=== PATIENT | male | born 1935 | race Caucasian/White ===

== ENCOUNTER 2017-08-14 14:20 | Emergency (ER) | payer MEDICARE, MEDICAID ==
[2015-05-21 12:04] VITALS: Wt 95.3 kg
--- NOTE | 2017-08-14 14:25 | ER Report ---
History and Physical Time Seen By MD: 14:24 HPI/ROS CHIEF COMPLAINT: Weeping wounds and edema to the lower extremities HISTORY OF PRESENT ILLNESS: This is a 81-year-old male who presents to the ED via EMS for lower leg edema, weeping wounds and low oxygen saturation. Patient states that he's had some increased edema and drainage from his right lower leg today. Patient states Nery Colon has treated him for a cellulitic infection to the lower extremity 2 weeks, that infection has resolved. Patient denies pain in the calf, there is no erythema or cellulitic looking infection. Patient does appear to have PAD the lower extremities. There are 2 wounds that I can see that are oozing serous fluid. Patient denies chest pain, shortness of breath, nausea, vomiting, aches, chills, diarrhea or any other complaints. REVIEW OF SYSTEMS: Constitutional: No fever, no chills. Eyes: No discharge. ENT: No sore throat. Cardiovascular: No chest pain, no palpitations. Respiratory: No cough, no shortness of breath. Gastrointestinal: No abdominal pain, no vomiting. Genitourinary: No hematuria. Musculoskeletal: No back pain. Skin: As above. Neurological: No headache. Allergies: Coded Allergies: No Known Drug Allergies (Unverified , 08/14/17) Home Meds Reported Medications Triamcinolone Acet 0.5% (TRIAMCINOLONE ACETONIDE 0.5%) 15 Gm Cr, 15 GM TP BID, TUBE 05/17/16 Menthol/Camphor (SARNA ANTI-ITCH LOTION) 222 Ml Lotion, 222 ML TP BID 05/17/16 Methylphenidate Hcl (RITALIN) 10 Mg Tab, 10 MG PO BID, TAB 05/17/16 Calcium Carbonate/Vitamin D3 (CALCIUM 500 + VIT D 200 TABLET) 1 Each Tablet, 1 EACH PO QDAY for 30 Days 06/03/15 Clobetasol Propionate/Emoll (TEMOVATE EMOLLIENT 0.05% CRM) 60 Gm Cream..g., 0 TP BID Y for DISCOMFORT for 30 Days 06/03/15 Docusate Sodium (DOCUSATE SODIUM) 100 Mg Capsule, 100 MG PO BID, #60 CAPSULE 01/18/15 Duloxetine Hcl (CYMBALTA) 60 Mg Capsule.dr, 120 MG PO QAM, #60 CAP 01/18/15 Rivaroxaban (XARELTO 10 MG TAB (OR EQUIV)) 10 Mg Tablet, 20 MG PO QDAY, #30 01/05/15 Diltiazem Hcl (CARDIZEM CD) 240 Mg Cap.er.24h, 120 MG PO QDAY, #30 01/05/15 Multivitamin (DAILY MULTIPLE VITAMIN) 1 Each Tablet, 1 EACH PO DAILY 11/07/14 Mirtazapine (REMERON) 15 Mg Tablet, 30 MG PO QHS, #30 11/07/14 Tamsulosin Hcl (TAMSULOSIN HCL) 0.4 Mg Cap.er.24h, 0.4 MG PO QDAY, #30 11/03/14 Past Medical/Surgical History Patient has a past medical and surgical history of PAD, on Xarelto, irregular heartbeat, A. fib, hypertension, questionable reactive airway disease, enlarged prostate, degenerative joint disease, arthritis, wears glasses, hard of hearing , eczema, depression, anxiety, cardiac ablation, knee scope, bilateral hip replacement, Lasik surgery, tonsillectomy. Reviewed Nurses Notes: Yes Hx Smoking: No Smoking Status: Former Smoker Exposure to Second Hand Smoke?: No Hx Substance Use Disorder: Yes (30 years ago) Hx Alcohol Use: No Constitutional Vital Sign - Last 24 Hours 08/14/17 08/14/17 08/14/17 08/14/17 14:20 14:23 14:25 14:30 Temp 97.7 Pulse 65 63 72 Resp 16 B/P (MAP) 113/92 Pulse Ox 85 93 93 94 O2 Delivery Room Air 08/14/17 08/14/17 08/14/17 08/14/17 14:35 14:40 14:45 15:37 Pulse 65 59 B/P (MAP) 146/79 (101) Pulse Ox 96 96 92 92 O2 Delivery Room Air 08/14/17 15:43 Pulse 65 B/P (MAP) 146/79 (101) Pulse Ox 92 O2 Delivery Room Air Physical Exam General Appearance: The patient is alert, has no immediate need for airway protection and no signs of toxicity. Eyes: Pupils equal and round no pallor or injection. ENT, Mouth: Mucous membranes are moist. Respiratory: There are no retractions, lungs are clear to auscultation. Cardiovascular: Regular rate and rhythm, systolic murmur, no clicks or rubs. Gastrointestinal: Abdomen is soft and non tender, no masses, bowel sounds normal. Neurological: Alert and oriented 4. Moving all extremities. Following all commands. No focal deficits. Skin: Nonpitting edema to the lower extremities bilaterally, with serous fluid leaking from the right lower extremity. No erythema, no pain or cellulitic looking infection. Musculoskeletal: Neck is supple non tender. Extremities are nontender, nonswollen and have full range of motion. DIFFERENTIAL DIAGNOSIS: After history and physical exam differential diagnosis was considered for DVT, PAD, cellulitis and vasculitis. Medical Decision Making Data Points Result Diagram: 08/14/17 1448 08/14/17 1448 Laboratory Hematology Test 08/14/17 14:48 Red Blood Count 5.15 M/uL (4.00-5.60) Mean Corpuscular Volume 87.9 fL (80.0-96.0) Mean Corpuscular Hemoglobin 30.1 pg (26.0-33.0) Mean Corpuscular Hemoglobin Concent 34.2 g/dL (32.0-36.0) Red Cell Distribution Width 14.9 % (11.5-14.5) Mean Platelet Volume 8.5 fL (7.2-11.1) Neutrophils (%) (Auto) 64.1 % (39.4-72.5) Lymphocytes (%) (Auto) 23.1 % (17.6-49.6) Monocytes (%) (Auto) 9.3 % (4.1-12.4) Eosinophils (%) (Auto) 2.9 % (0.4-6.7) Basophils (%) (Auto) 0.6 % (0.3-1.4) Nucleated RBC Relative Count (auto) 0.1 /100WBC Neutrophils # (Auto) 3.4 K/uL (2.0-7.4) Lymphocytes # (Auto) 1.2 K/uL (1.3-3.6) Monocytes # (Auto) 0.5 K/uL (0.3-1.0) Eosinophils # (Auto) 0.2 K/uL (0.0-0.5) Basophils # (Auto) 0.0 K/uL (0.0-0.1) Nucleated RBC Absolute Count (auto) 0.00 K/uL Sodium Level 138 mmol/L (137-145) Potassium Level 4.0 mmol/L (3.5-5.0) Chloride Level 102 mmol/L (98-107) Carbon Dioxide Level 26 mmol/L (22-30) Blood Urea Nitrogen 18 mg/dl (9-21) Creatinine 0.90 mg/dl (0.66-1.25) Glomerular Filtration Rate Calc > 60.0 Random Glucose 95 mg/dl (75-110) Calcium Level 9.1 mg/dl (8.4-10.2) Total Bilirubin 0.7 mg/dl (0.2-1.3) Aspartate Amino Transf (AST/SGOT) 19 U/L (0-35) Alanine Aminotransferase (ALT/SGPT) 32 U/L (0-56) Alkaline Phosphatase 74 U/L (0-126) Total Protein 7.5 gm/dl (6.3-8.2) Albumin 4.1 g/dl (3.5-5.0) Chemistry Test 08/14/17 14:48 White Blood Count 5.4 k/uL (4.5-11.0) Red Blood Count 5.15 M/uL (4.00-5.60) Hemoglobin 15.5 g/dL (14.0-18.0) Hematocrit 45.3 % (42.0-52.0) Mean Corpuscular Volume 87.9 fL (80.0-96.0) Mean Corpuscular Hemoglobin 30.1 pg (26.0-33.0) Mean Corpuscular Hemoglobin Concent 34.2 g/dL (32.0-36.0) Red Cell Distribution Width 14.9 % (11.5-14.5) Platelet Count 171 K/uL (150-450) Mean Platelet Volume 8.5 fL (7.2-11.1) Neutrophils (%) (Auto) 64.1 % (39.4-72.5) Lymphocytes (%) (Auto) 23.1 % (17.6-49.6) Monocytes (%) (Auto) 9.3 % (4.1-12.4) Eosinophils (%) (Auto) 2.9 % (0.4-6.7) Basophils (%) (Auto) 0.6 % (0.3-1.4) Nucleated RBC Relative Count (auto) 0.1 /100WBC Neutrophils # (Auto) 3.4 K/uL (2.0-7.4) Lymphocytes # (Auto) 1.2 K/uL (1.3-3.6) Monocytes # (Auto) 0.5 K/uL (0.3-1.0) Eosinophils # (Auto) 0.2 K/uL (0.0-0.5) Basophils # (Auto) 0.0 K/uL (0.0-0.1) Nucleated RBC Absolute Count (auto) 0.00 K/uL Glomerular Filtration Rate Calc > 60.0 Calcium Level 9.1 mg/dl (8.4-10.2) Total Bilirubin 0.7 mg/dl (0.2-1.3) Aspartate Amino Transf (AST/SGOT) 19 U/L (0-35) Alanine Aminotransferase (ALT/SGPT) 32 U/L (0-56) Alkaline Phosphatase 74 U/L (0-126) Total Protein 7.5 gm/dl (6.3-8.2) Albumin 4.1 g/dl (3.5-5.0) ED Course/Re-evaluation ED Course The patient was admitted to room. A history and physical were obtained. Differential diagnoses were considered. After history and physical were obtained did elect to do the CBC and CMP. Lab studies are unremarkable. Patient was concerned with the weeping of the right lower extremity. After an evaluation did not see any sort of infectious process developing in the right lower extremity or the left lower extremity. Patient was treated by his PCP for cellulitis of the right lower extremity 2 weeks. Patient's states this has improved. Patient's states the swelling has began to ciro however today he became concerned when he had some serous fluid draining from a couple of sites. When I did go back into the room to review the laboratory studies with patient he said that he is "ready to go home". I did tell the patient there were no concerning lab studies. Patient states he is happy and ready to go. The patient' s right lower extremity was wrapped with an Jaguar wrap and absorbent pads to help with the oozing. The patient was instructed to follow-up with his primary care provider in 2-5 days for reevaluation of the edema and the oozing. Patient was also encouraged to return the ED for any other concerns or worsening symptoms. Patient was in agreement with this plan of care and discharged home. Decision to Disposition Date: Aug 14, 2017 Decision to Disposition Time: 15:39 Depart Departure Latest Vital Signs Vital Signs Date Time Temp Pulse Resp B/P (MAP) Pulse Ox O2 Delivery O2 Flow Rate FiO2 08/14/17 15:43 65 146/79 (101) 92 Room Air 08/14/17 14:23 97.7 16 Impression: Primary Impression: Bilateral lower extremity edema Condition: Improved Disposition: HOME OR SELF-CARE Referrals: NERY COLON (PCP) Patient Instructions: Leg Edema (ED) Additional Instructions: Drink plenty of fluids. Get plenty of rest. Monitor the clear drainage and lower legs for signs of infection. May use the jaguar wrap to the lower extremity if needed to the lower extremity for comfort and to help reduce the edema. Please follow up with your PCP within the next 3-5 days to ensure the legs and drainage are improving. May return to the ED for any other concerns or worsening symptoms. ASHLEY PENAP-BC Aug 14, 2017 14:25
[2017-08-14 15:00] LABS: PLATELET COUNT, AUTOMATED 171 K/uL (150-450)
[2017-08-14 15:43] VITALS: BP 146/79
== END 2017-08-14 15:40 | disposition home or self-care (01) ==
LOC: ER 14:25
DX: R60.0 Localized edema (principal)
CPT/HCPCS: 36415; 82040; 82247; 82310; 82374; 82435; 82565; 82947; 84075; 84132; 84155; 84295; 84450; 84460; 84520; 85025; 99283

== ENCOUNTER → 2017-08-14 | Outpatient (CLI) | payer MEDICARE, MEDICAID ==
[2015-05-21 12:04] VITALS: BMI 25.5
[~2017-08-14] MED LIST: ACET-1966 PO; ARIP10TA5; ARIP10TA5 PO; CALC-941 PO; CELE-1 PO; CLOB60CR TP; DILT-100 PO; DILT-88; DILT240C PO; DOCU-202 PO; DOCU-416 PO; DULO30CA35 PO; DULO60CA56 PO; DULO60CA7 PO; ENO30I SC; ESCI20TA38 PO; HCTZ25 PO; HYDR-317 PO; HYDR-385 PO; LOR5/325 PO; MEGE20TA7 PO; METH18ERPT PO; METH20CP PO; METH20TA37 PO; METH5TAB85 PO; METHY10 PO; MIRT-1 PO; MULT-865 PO; OMEG500C7 PO; PER PO; PRED-1 PO; RAMI10CA52; RAMI5CAP72 PO; RIV10 PO; RIVA20TA PO; SENN-287 PO; TAMS0.4C70 PO; TRAM-420 PO; TRAM-627 PO; TRI05T TP; WAR5 PO; WARF5VIA3 PO; [UNRECOGNIZED DRUG - CODE] TP; megastrol PO
== END ==
LOC: AMB 14:05
PROVIDERS: ATTEND Nurse Practitioner
DX: L03.115 Cellulitis of right lower limb (principal); R60.0 Localized edema; R09.02 Hypoxemia
CPT/HCPCS: A0425; A0429

== ENCOUNTER → 2017-08-20 | Outpatient (REF) | payer MEDICARE, MEDICAID ==
[2015-05-21 12:04] VITALS: BMI 25.5
[2017-08-20 11:11] LABS: PLATELET COUNT, AUTOMATED 177 K/uL (150-450)
[2017-08-20 11:17] LABS: LDL CHOLESTEROL 93 mg/dl
== END ==
LOC: ZZSENDIN 10:46
PROVIDERS: ATTEND Nurse Practitioner Family
DX: D64.9 Anemia, unspecified (principal); J45.909 Unspecified asthma, uncomplicated; I48.91 Unspecified atrial fibrillation; I10 Essential (primary) hypertension; I25.10 Atherosclerotic heart disease of native coronary artery without angina pectoris; F34.1 Dysthymic disorder; R60.9 Edema, unspecified; E34.9 Endocrine disorder, unspecified; E78.00 Pure hypercholesterolemia, unspecified; E23.6 Other disorders of pituitary gland; R09.02 Hypoxemia; M62.81 Muscle weakness (generalized); R53.83 Other fatigue; D51.0 Vitamin B12 deficiency anemia due to intrinsic factor deficiency; E07.9 Disorder of thyroid, unspecified; E55.9 Vitamin D deficiency, unspecified
CPT/HCPCS: 82040; 82247; 82306; 82310; 82374; 82435; 82465; 82565; 82607; 82947; 83718; 84075; 84132; 84155; 84295; 84443; 84450; 84460; 84478; 84520; 85025

== ENCOUNTER → 2018-02-22 | Outpatient (REF) | payer MEDICARE, MEDICAID ==
[2015-05-21 12:04] VITALS: BMI 25.5
[~2018-02-22] MED LIST changes: +AMOX500T10 PO; +CHOL200025 PO; +DILT120T13 PO; +DULO30CA6 PO; +FURO-47 PO; +GABA-547 PO; +OMEP-125 PO; +OXYGENHOME INH; +POTA-23 PO; -RAMI10CA52; +RAMI10CA9; +VITA1CAP46 PO
== END ==
LOC: ZZSENDIN 13:13
PROVIDERS: ATTEND Family Medicine
DX: R41.0 Disorientation, unspecified (principal)
CPT/HCPCS: 81001

== ENCOUNTER → 2018-03-18 | Outpatient (CLI) | payer MEDICARE, MEDICAID ==
[2015-05-21 12:04] VITALS: BMI 25.5
== END ==
LOC: LAB 10:53
PROVIDERS: ATTEND Family Medicine
DX: Z02.9 Encounter for administrative examinations, unspecified (principal)

== ENCOUNTER → 2018-04-03 | Outpatient (CLI) | payer MEDICARE, MEDICAID ==
[2015-05-21 12:04] VITALS: BMI 25.5
== END ==
LOC: RESP 20:56
PROVIDERS: ATTEND Family Medicine
DX: G47.33 Obstructive sleep apnea (adult) (pediatric) (principal); G47.61 Periodic limb movement disorder; G47.36 Sleep related hypoventilation in conditions classified elsewhere

== ENCOUNTER 2018-05-06 09:45 | Outpatient (RCR) | payer MEDICARE, MEDICAID ==
[2015-05-21 12:04] VITALS: BMI 25.5
--- NOTE | 2018-02-19 07:42 | PT INITIAL EVALUATION ---
MEDICAL DIAGNOSIS: balance problem, leg length discrepancy TREATMENT DIAGNOSIS: same DATE OF ONSET: 08/19/17 SUBJECTIVE: Tiago Flores presents to physical therapy with complaints of decreased balance that started approximately 6 months ago. He reports that he feels like his balance is hazardous to his life. He reports that he has had a few falls and the last fall was approximately 6 months ago. Overall, he reports that he would like to improve his balance so that he can walk and move better without falling as he does not want to endanger his body anymore. He denies any dizziness, lightheadedness, or spinning sensation. He reports that he does have arthritis and some pain in his lateral L foot that is worse in the morning for the first few steps and then gets better as he moves. He reports that he has had cellulitis on his R lower leg for the past 8-9 months. Pain location is L foot (dorsum) and described as a dull ache. Pain scale is 1 on a ten point pain scale. REHAB PROBLEM LIST: Increased Pain Decreased ROM Decreased Strength Decreased Endurance Decreased Balance Decreased Function Decreased ADL's Decreased Mobility Decreased Gait PREVIOUS MEDICAL HISTORY: See EMR OCCUPATION: Retired OBJECTIVE: Posture: He demonstrates B rounded shoulders, increased thoracic kyphosis, and decreased lumbar lordosis. ROM: AROM; full in all joints; WFL Strength: B hip flexion, abduction, extension, B knee flexion and extension, and B ankle DF and PF: 4/5 and he did not experience any pain. B hip adduction: 5/5 with no pain. Palpation: TTP: 4-5th MTP dorsum Sensation: Decreased B L4-S1 Special Tests: 7/8 inch leg length discrepancy; however, he has a lift within his shoe Mobility: Modified Independent Gait: He demonstrated the following gait mechanics with a cane: increased base of support, decreased velocity, antalgic gait, no LOB, increased lateral trunk movement, and decreased pelvic rotation. Balance: 4 stage balance test: normal base of support, firm surface, eyes opened: 60 seconds with minimal sway. normal base of support, firm surface, eyes closed: 60 seconds with minimal sway. decreased base of support, firm surface, eyes opened: 60 seconds with minimal sway. decreased base of support, firm surface, eyes closed: 60 seconds with increased sway. normal base of support, compliant surface, eyes opened: 60 seconds with minimal sway. normal base of support, compliant surface, eyes closed: 15 seconds. decreased base of support, compliant surface, eyes opened: 30 seconds with severe sway. decreased base of support, compliant surface, eyes closed: 5 seconds with severe sway. Tandem stance, eyes opened, R foot forward, firm surface: 5 seconds with severe sway. Tandem stance, eyes opened L foot forward, firm surface: 30 seconds with severe sway but better than the other side. ASSESSMENT: Tiago will benefit from skilled physical therapy addressing the listed impairments to improve function and QOL. Short Term Goals 2 weeks: Pt will be independent with his home exercise program to improve function and QOL. 4 weeks: Pt will be able to utilize his balance strategies in all conditions for 30 seconds or greater to improve function and QOL. 8 weeks: Pt will be able to utilize his balance strategies in all conditions for 60 seconds or greater to improve function and QOL. Patient's Goals to improve balance PLAN: Patient to be seen for Manual Therapy/STM/MET Strengthening/condition Range of Motion Spinal Stabilization Work Hardening/Cond Stretching Neuromuscular Re-ed Closed Chain Program Posture/Body mechanics Gait Trg/Balance Trg Home Exercise Program Therapeutic Activities 2x/Week for 2 Months If you have any questions, comments, or concerns about this report or plan, please contact me at . Thank you, Nirmal Limon, PT, DPT [facility]
[2018-03-18 10:54] LABS: PLATELET COUNT, AUTOMATED 246 K/uL (150-450)
--- NOTE | 2018-03-26 17:23 | PT PLAN OF CARE ---
Physician: Sharyn Fuentes MD Patient is being seen: 2x/week Therapist: Nirmal Limon, PT, DPT Medical Diagnosis: balance problem, leg length discrepancy Treatment Diagnosis: same Date of Onset: 08/19/17 Date of Initial Evaluation: 02/18/18 Date patient was last seen: 03/25/18 Number of treatments: 10 Number of cancellations/No shows: 1 INTERVENTIONS: Manual Therapy/STM/MET Strengthening/condition Range of Motion Spinal Stabilization Work Hardening/Cond Stretching Neuromuscular Re-ed Closed Chain Program Posture/Body mechanics Gait Trg/Balance Trg Home Exercise Program Therapeutic Activities GOALS: 2 weeks: Pt will be independent with his home exercise program to improve function and QOL. 4 weeks: Pt will be able to utilize his balance strategies in all conditions for 30 seconds or greater to improve function and QOL. 8 weeks: Pt will be able to utilize his balance strategies in all conditions for 60 seconds or greater to improve function and QOL. PATIENT'S GOAL: to improve balance Status of Patient's Goals: Progressing Patient Compliance: Good Prognosis: Good Reasons for continuing therapy: This is a progress note for Tiago Flores. He denies any LOB's or recent falls. He reports that he feels like his balance and ambulation is getting better. He states that he has been working on his walking edilma during his off-days at his apartment. He demonstrates significant improvements with gait mechanics when given maximum verbal cues, increased static balance in all conditions, and increased B LE strength; however, he continues to be weaker on his R LE versus his L LE. We will continue to improve gait mechanics, balance strategies, gait mechanics, and return to prior level of function. Posture: He demonstrates B rounded shoulders, increased thoracic kyphosis, and decreased lumbar lordosis. ROM: AROM; full in all joints; WFL Strength: B hip flexion, abduction, extension, B knee flexion and extension, and B ankle DF and PF: 4/5 and he did not experience any pain. B hip adduction: 5/5 with no pain. Palpation: TTP: 4-5th MTP dorsum Special Tests: 7/8 inch leg length discrepancy; however, he has a lift within his shoe 4 stage balance test: normal base of support, firm surface, eyes opened: 60 seconds with minimal sway. normal base of support, firm surface, eyes closed: 60 seconds with minimal sway. decreased base of support, firm surface, eyes opened: 60 seconds with minimal sway. decreased base of support, firm surface, eyes closed: 60 seconds with increased sway. normal base of support, compliant surface, eyes opened: 60 seconds with minimal sway. normal base of support, compliant surface, eyes closed: 15 seconds. decreased base of support, compliant surface, eyes opened: 45 seconds with severe sway. decreased base of support, compliant surface, eyes closed: 20 seconds with severe sway. Tandem stance, eyes opened, R foot forward, firm surface: 10 seconds with severe sway. Tandem stance, eyes opened L foot forward, firm surface: 38 seconds with severe sway but better than the other side. Mobility: Modified Independent If you have any questions, please contact me at [phone]. Thank you, Nirmal Limon, PT, DPT [facility]
[2018-05-06] MEDS ORDERED: DULO60CA56 PO (18:03)
[2018-05-07] MEDS ORDERED: DULO60CA56 PO (17:03)
--- NOTE | 2018-05-09 18:57 | PT PLAN OF CARE ---
Physician: Sharyn Fuentes MD Patient is being seen: [g OPPT.PTF] Therapist: [[email or web address] [email or web address]] Medical Diagnosis: balance problem, leg length discrepancy Treatment Diagnosis: same Date of Onset: 08/19/17 Date of Initial Evaluation: 02/18/18 Date patient was last seen: 05/09/18 Number of treatments: 21 Number of cancellations/No shows: [*] INTERVENTIONS: Manual Therapy/STM/MET Strengthening/condition Range of Motion Spinal Stabilization Work Hardening/Cond Stretching Neuromuscular Re-ed Closed Chain Program Posture/Body mechanics Gait Trg/Balance Trg Home Exercise Program Therapeutic Activities GOALS: 2 weeks: Pt will be independent with his home exercise program to improve function and QOL. 4 weeks: Pt will be able to utilize his balance strategies in all conditions for 30 seconds or greater to improve function and QOL. 8 weeks: Pt will be able to utilize his balance strategies in all conditions for 60 seconds or greater to improve function and QOL. PATIENT'S GOAL: to improve balance Status of Patient's Goals: Progressing Patient Compliance: Good Prognosis: Good Reasons for continuing therapy: This is a progress note for Tiago Flores. He reports that he was doing well and was preparing for discharge today. He reports that he was feeling strong and balanced; however, this morning he woke up and was severely off balance, felt sick, and was having extreme difficulty walking. He denies lightheadedness, dizziness, numbness, any pain, negative double vision, and states that his BP has been fine. He reports that he would like to be seen for a couple visits to make sure he returns back to feeling strong and balanced. Even though he felt off today, he demonstrated significant improvements in balance strategies in all conditions, increased B LE strength, increased gait mechanics when following max verbal cues. After doing a screen, I do not believe anything serious medically is going on with him. If so, I would have referred to physician and ER department. We will continue to ensure that he has returned to prior level of function prior to discharging. Posture: He demonstrates B rounded shoulders, increased thoracic kyphosis, and decreased lumbar lordosis. ROM: AROM; full in all joints; WFL Strength: B hip flexion, abduction, extension, B knee flexion and extension, and B ankle DF and PF: 4/5 and he did not experience any pain. B hip adduction: 5/5 with no pain. Palpation: TTP: 4-5th MTP dorsum Special Tests: 7/8 inch leg length discrepancy; however, he has a lift within his shoe 4 stage balance test: normal base of support, firm surface, eyes opened: 60 seconds with minimal sway. normal base of support, firm surface, eyes closed: 60 seconds with minimal sway. decreased base of support, firm surface, eyes opened: 60 seconds with minimal sway. decreased base of support, firm surface, eyes closed: 60 seconds with increased sway. normal base of support, compliant surface, eyes opened: 60 seconds with minimal sway. normal base of support, compliant surface, eyes closed: 30 seconds. decreased base of support, compliant surface, eyes opened: 60 seconds with severe sway. decreased base of support, compliant surface, eyes closed: 40 seconds with severe sway. Tandem stance, eyes opened, R foot forward, firm surface: 44 seconds with severe sway. Tandem stance, eyes opened L foot forward, firm surface: 58 seconds with severe sway but better than the other side. Mobility: Modified Independent If you have any questions, please contact me at [phone]. Thank you, Nirmal Limon, PT, DPT [facility]
== END 2018-05-19 ==
LOC: PT 09:45
PROVIDERS: ATTEND Family Medicine
DX: M21.70 Unequal limb length (acquired), unspecified site (principal); R26.89 Other abnormalities of gait and mobility; R29.6 Repeated falls; M79.672 Pain in left foot; M19.90 Unspecified osteoarthritis, unspecified site
CPT/HCPCS: 36415; 82040; 82247; 82310; 82374; 82435; 82565; 82947; 84075; 84132; 84155; 84295; 84450; 84460; 84520; 85025; 97161

== ENCOUNTER 2018-05-27 09:45 | Outpatient (RCR) | payer MEDICARE, MEDICAID ==
[2015-05-21 12:04] VITALS: BMI 25.5
--- NOTE | 2018-05-27 15:03 | PT PLAN OF CARE ---
Physician: Sharyn Fuentes MD Patient is being seen: 2x/week Therapist: Nirmal Limon, PT, DPT Medical Diagnosis: balance problem, leg length discrepancy Treatment Diagnosis: same Date of Onset: 08/19/17 Date of Initial Evaluation: 02/18/18 Date patient was last seen: 05/27/18 Number of treatments: 22 Number of cancellations/No shows: 0 INTERVENTIONS: Manual Therapy/STM/MET Strengthening/condition Range of Motion Spinal Stabilization Work Hardening/Cond Stretching Neuromuscular Re-ed Closed Chain Program Posture/Body mechanics Gait Trg/Balance Trg Home Exercise Program Therapeutic Activities GOALS: 2 weeks: Pt will be independent with his home exercise program to improve function and QOL. 4 weeks: Pt will be able to utilize his balance strategies in all conditions for 30 seconds or greater to improve function and QOL. 8 weeks: Pt will be able to utilize his balance strategies in all conditions for 60 seconds or greater to improve function and QOL. PATIENT'S GOAL: to improve balance Status of Patient's Goals: Progressing Patient Compliance: Good Prognosis: Good Reasons for continuing therapy: This is a progress note for Tiago Flores. He reports that he is doing well and is prepared for discharge today. He reports that he is doing much better. He reports that the last session was just a bad day and has not felt that way since a few weeks ago. He reports that he feels like he has a good routine with balance, strength, and gait mechanics at his home for the last two weeks. Furthermore, he reports that he feels confident in his home exercise program and feels like he will follow through with the program. He demonstrated within PT the following improvements: increased gait mechanics (increased step lengths, decreased base of support, increased initial contact, increased terminal stance), increased endurance, increased balance strategies in all conditions, increased B LE strength (however, he continues to lack some strength, which he will hopefully improve through [facility]), and is independent on his HEP. As a result, he will be discharged from PT to [facility]. Posture: He demonstrates B rounded shoulders, increased thoracic kyphosis, and decreased lumbar lordosis. ROM: AROM; full in all joints; WFL Strength: B hip flexion, abduction, extension, B knee flexion and extension, and B ankle DF and PF: 4/5 and he did not experience any pain. B hip adduction: 5/5 with no pain. Palpation: TTP: 4-5th MTP dorsum Special Tests: 7/8 inch leg length discrepancy; however, he has a lift within his shoe 4 stage balance test: normal base of support, firm surface, eyes opened: 60 seconds with minimal sway. normal base of support, firm surface, eyes closed: 60 seconds with minimal sway. decreased base of support, firm surface, eyes opened: 60 seconds with minimal sway. decreased base of support, firm surface, eyes closed: 60 seconds with increased sway. normal base of support, compliant surface, eyes opened: 60 seconds with minimal sway. normal base of support, compliant surface, eyes closed: 30 seconds. decreased base of support, compliant surface, eyes opened: 60 seconds with severe sway. decreased base of support, compliant surface, eyes closed: 40 seconds with severe sway. Tandem stance, eyes opened, R foot forward, firm surface: 44 seconds with severe sway. Tandem stance, eyes opened L foot forward, firm surface: 58 seconds with severe sway but better than the other side. Mobility: Modified Independent If you have any questions, please contact me at [phone]. Thank you, Nirmal Limon, PT, DPT [facility]
== END 2018-05-27 18:00 | disposition home or self-care (01) ==
LOC: PT 09:45
PROVIDERS: ATTEND Family Medicine
DX: R26.89 Other abnormalities of gait and mobility (principal); M21.70 Unequal limb length (acquired), unspecified site

== ENCOUNTER → 2018-08-22 | Outpatient (CLI) | payer MEDICARE, MEDICAID ==
[2015-05-21 12:04] VITALS: BMI 25.5
[~2018-08-22] MED LIST changes: +MIRT7.5T2 PO
[2018-08-22 14:57] LABS: PLATELET COUNT, AUTOMATED 215 K/uL (150-450)
== END ==
LOC: LAB 14:11
PROVIDERS: ATTEND Family Medicine
DX: I48.91 Unspecified atrial fibrillation (principal); I10 Essential (primary) hypertension
CPT/HCPCS: 36415; 82040; 82247; 82310; 82374; 82435; 82565; 82947; 84075; 84132; 84155; 84295; 84450; 84460; 84520; 85025

== ENCOUNTER 2018-12-19 18:21 | Emergency (ER) | payer MEDICARE ==
[2015-05-21 12:04] VITALS: Wt 92.1 kg
[~2018-12-19 18:21] MED LIST changes: +FINA5TAB67 PO; -OMEP-125 PO; +OMEP-126 PO; +TAMS0.4C25 PO
--- NOTE | 2018-12-19 19:16 | ER Report ---
History and Physical Time Seen By MD: 18:50 Hx. of Stated Complaint: increased weakness the past few days and balance issues HPI/ROS CHIEF COMPLAINT: weakness and balance issues HISTORY OF PRESENT ILLNESS: This is an 83 year old male. He has been having chronic weakness and balance issues. Started using a walker this week, but admits to being reluctant to start using it because of the stigma. He has been using a cane prior to this. He denies any vertigo. Has had a mild headache in right frontal area off and on. Has had intermittent nausea, but none now. No vomiting. Has no shortness of breath, cough, runny nose, or sore throat. No chest pain or palpitations. Chronic atrial fibrillation on Xarelto. Has no trouble with bowels, having a good bowel movement yesterday, denies blood or melena. Normal urination which has improved recently with the finasteride prescribed recently for BPH. Has decreased urination at night from 11 times to about 5 times at night. Denies falls. Weakness is all over, mostly legs, both legs. Allergies: Coded Allergies: atenolol (Verified Allergy, Unknown, 12/17/17) Home Meds Active Scripts Tamsulosin Hcl (FLOMAX) 0.4 Mg Cap.er.24h, 1 CAP PO DAILY for 90 Days, #90 CAP 1 Refill Prov:SHANNA GILMORE MD 10/31/18 Finasteride (FINASTERIDE) 5 Mg Tablet, 1 TAB PO QDAY for 90 Days, #90 TAB 4 Refills Prov:SHANNA GILMORE MD 10/03/18 Rivaroxaban 20 Mg (XARELTO 20 MG) 20 Mg Tablet, 1 TAB PO DAILY for 90 Days, #90 TAB 1 Refill Prov:JAMI ALMAZAN APRN PLANNING ENGINEER-C 08/09/18 Triamcinolone Acet 0.5% (TRIAMCINOLONE ACETONIDE 0.5%) 15 Gm Cr, 15 GM TP BID, #1 TUBE Prov:SHANNA GILMORE MD 07/08/18 Mirtazapine (MIRTAZAPINE) 7.5 Mg Tablet, 7.5 MG PO QHS for 90 Days, #90 TAB 4 Refills Prov:SHANNA GILMORE MD 06/24/18 Duloxetine Hcl (CYMBALTA) 60 Mg Capsule.dr, 1 CAP PO DAILY for 90 Days, #90 CAP 4 Refills Prov:SHANNA GILMORE MD 05/07/18 Diltiazem Hcl (DILTIAZEM HCL) 120 Mg Tablet, 1 TAB PO BID for 90 Days, #180 TAB 4 Refills Prov:SHANNA GILMORE MD 12/31/17 Reported Medications Amoxicillin 500 Mg Tab (AMOXICILLIN 500 MG TAB) 500 Mg Tablet, 4 TAB PO PRN, TAB Take 4 tabs prior to dental work 12/17/17 Vitamin B Complex (VITAMIN B COMPLEX) 1 Each Capsule, 1 CAP PO 3XW 12/17/17 Cholecalciferol (Vitamin D3) (VITAMIN D3) 2,000 Unit Capsule, 1 CAP PO DAILY 12/17/17 Oxygen (OXYGEN) Inha, 2 L INH HS, L 12/17/17 Menthol/Camphor (SARNA ANTI-ITCH LOTION) 222 Ml Lotion, 222 ML TP BID 05/17/16 Clobetasol Propionate/Emoll (TEMOVATE EMOLLIENT 0.05% CRM) 60 Gm Cream..g., 0 TP BID PRN for DISCOMFORT for 30 Days 06/03/15 Docusate Sodium (DOCUSATE SODIUM) 100 Mg Capsule, 1 CAP PO BID 01/18/15 Reviewed Nurses Notes: Yes Hx Smoking: No Smoking Status: Former Smoker Exposure to Second Hand Smoke?: No Hx Substance Use Disorder: Yes (30 years ago) Hx Alcohol Use: No Constitutional Vital Sign - Last 24 Hours 12/19/18 12/19/18 12/19/18 12/19/18 18:28 18:33 18:51 19:00 Temp 98.2 Pulse 93 89 Resp 16 10 B/P (MAP) 158/113 (128) 158/113 159/92 (114) Pulse Ox 92 90 O2 Delivery Room Air 12/19/18 12/19/18 12/19/18 12/19/18 19:21 19:30 19:51 20:00 Pulse 85 90 Resp 22 12 B/P (MAP) 144/92 (109) 152/91 (111) Pulse Ox 95 12/19/18 12/19/18 12/19/18 20:00 20:30 21:00 Pulse 91 88 Resp 11 13 17 B/P (MAP) 152/91 (111) 163/109 (127) 158/110 (126) Pulse Ox 96 97 99 Physical Exam General Appearance: The patient is alert. No acute distress. Eyes: Pupils are equal, round. Reactive to light. No pallor, injection or icterus. Extraocular movements are intact. ENT: Mucous membranes are moist. Normal oral mucosa. Posterior oropharynx is normal. Normal tympanic membranes and canals. Neck: Supple and non tender. No lymphadenopathy. Respiratory: Lungs are clear to auscultation. Cardiovascular: Regular rate and rhythm. No murmurs, gallops or rubs. Normal capillary refill. Has 1+ edema bilateral ankles, says this is chronic amount for him. Gastrointestinal: Abdomen is soft and non tender. Nondistended. Normal active bowel sounds. No costovertebral angle tenderness with percussion. Neurological: Alert and oriented x3. Cranial nerves with eye exam as noted above, has normal motor function, midline tongue, symmetric palate elevation, normal facial sensation. Generalized weakness in hip flexors, but equal. Otherwise normal strength and equal throughout. Skin: Warm and dry. No rashes. Musculoskeletal: Extremities are nontender. No tenderness in palpation of the cervical, thoracic and lumbar spine. DIFFERENTIAL DIAGNOSIS: After history and physical exam, differential diagnosis was considered for generalized weakness and chronic balance issues that have been worse this week. Medical Decision Making Data Points Result Diagram: 12/19/18 1841 12/19/18 1841 Laboratory Hematology Test 12/19/18 18:41 White Blood Count 6.0 k/uL (4.5-11.0) Red Blood Count 4.83 M/uL (4.00-5.60) Hemoglobin 14.7 g/dL (14.0-18.0) Hematocrit 42.6 % (42.0-52.0) Mean Corpuscular Volume 88.2 fL (80.0-96.0) Mean Corpuscular Hemoglobin 30.5 pg (26.0-33.0) Mean Corpuscular Hemoglobin Concent 34.6 g/dL (32.0-36.0) Red Cell Distribution Width 14.6 % (11.5-14.5) H Platelet Count 192 K/uL (150-450) Mean Platelet Volume 9.0 fL (7.2-11.1) Neutrophils (%) (Auto) 67.5 % (39.4-72.5) Lymphocytes (%) (Auto) 22.8 % (17.6-49.6) Monocytes (%) (Auto) 8.3 % (4.1-12.4) Eosinophils (%) (Auto) 0.7 % (0.4-6.7) Basophils (%) (Auto) 0.7 % (0.3-1.4) Nucleated RBC Relative Count (auto) 0.0 /100WBC Neutrophils # (Auto) 4.1 K/uL (2.0-7.4) Lymphocytes # (Auto) 1.4 K/uL (1.3-3.6) Monocytes # (Auto) 0.5 K/uL (0.3-1.0) Eosinophils # (Auto) 0.0 K/uL (0.0-0.5) Basophils # (Auto) 0.0 K/uL (0.0-0.1) Nucleated RBC Absolute Count (auto) 0.00 K/uL Chemistry Test 12/19/18 18:41 Sodium Level 138 mmol/L (137-145) Potassium Level 3.9 mmol/L (3.5-5.0) Chloride Level 105 mmol/L (98-107) Carbon Dioxide Level 22 mmol/L (22-30) Blood Urea Nitrogen 19 mg/dl (9-21) Creatinine 0.80 mg/dl (0.66-1.25) Glomerular Filtration Rate Calc > 60.0 Random Glucose 112 mg/dl (75-110) Calcium Level 9.3 mg/dl (8.4-10.2) Magnesium Level 2.3 mg/dl (1.7-2.2) Total Bilirubin 0.6 mg/dl (0.2-1.3) Aspartate Amino Transf (AST/SGOT) 31 U/L (0-35) Alanine Aminotransferase (ALT/SGPT) 31 U/L (0-56) Alkaline Phosphatase 56 U/L (0-126) Troponin I < 0.012 ng/ml Total Protein 7.4 g/dl (6.3-8.2) Albumin 4.2 g/dl (3.5-5.0) Urinalysis Test 12/19/18 19:47 Urine Color Yellow Urine Clarity Clear Urine pH 6.0 pH (4.8-9.5) Urine Specific [place] 1.008 Urine Protein Negative mg/dL (NEGATIVE) Urine Glucose (UA) Negative mg/dL (NEGATIVE) Urine Ketones Negative mg/dL (NEGATIVE) Urine Blood Negative (NEGATIVE) Urine Nitrite Negative (NEGATIVE) Urine Bilirubin Negative (NEGATIVE) Urine Urobilinogen Negative mg/dL (0.2-1.9) Urine Leukocyte Esterase Negative (NEGATIVE) Urine RBC None /HPF (0-2/HPF) Urine WBC 2 /HPF (0-5/HPF) Urine Squamous Epithelial Cells None /LPF (</=FEW) Urine Bacteria Negative /HPF (NONE-FEW) Urine Mucus None /HPF (NONE-FEW) EKG/Imaging EKG Interpretation 12 lead EKG: Rhythm: Atrial fibrillation, rate 83 [place]: normal QRS: normal ST segments: normal Imaging EXAMINATION: Head CT without intravenous contrast HISTORY: Weakness. Balance problems. Nausea. Headache. COMPARISON: 05/17/2016. TECHNIQUE: Contiguous axial images were obtained from the skull base to the vertex without intravenous contrast. Sagittal and coronal reformatted images are also submitted. One of the following dose optimization techniques was utilized in the performance of this exam: Automated exposure control; adjustment of the mA and/or kV according to the patient's size; or use of an iterative reconstruction technique. Specific details can be referenced in the facility's radiology CT exam operational policy. FINDINGS: Brain and intracranial structures: Mild generalized cerebral atrophy with concordant sulcal and ventricular prominence. Moderate patchy and confluent hypoattenuation in the cerebral white matter. Small chronic calcifications in the right cerebellar hemisphere and in the left globus pallidus. No midline shift, acute hemorrhage, acute infarct, or mass. Vessels: Extensive calcification of the carotid siphons. Mild calcification of the distal vertebral arteries. Calvarium / scalp: Negative. Skull base / visualized face: Negative. Visualized sinuses / orbits: Previous endoscopic sinus surgery. Mild patchy mucosal thickening in the ethmoid air cells. IMPRESSION: No CT evidence of acute intracranial pathology. Moderate chronic small vessel ischemic changes in the cerebral white matter. Report Dictated By: Adan Coreas MD at 12/19/2018 8:45 PM CHEST SINGLE AP Indication: Weakness.. Comparison: 05/09/2016. Findings: Cardiomediastinal silhouette and pulmonary vessels within normal limits for the technique and rotation. There is no focal infiltrate or lobar consolidation. No pneumothorax or pleural effusion. No nodule. Upper abdomen is unremarkable. No acute bony abnormality. IMPRESSION: 1. No acute cardiopulmonary process. Report Dictated By: Spencer De Anda at 12/19/2018 8:41 PM ED Course/Re-evaluation Clinical Indication for ER IV: Hydration, IV Access ED Course Labs are fairly unremarkable, no sign of urinary infection. EKG and troponin negative other than the chronic atrial fibrillation. Head CT and chest x-ray negative. Discussed all this with the patient. Uncertain the cause of his ch ronic and worsening generalized weakness. No focal deficits noted. He is still able to get up and get around with his walker and he does appear safe to go home. Recommended they follow up with his primary care provider to discuss further. Decision to Disposition Date: Dec 19, 2018 Decision to Disposition Time: 21:13 Depart Departure Latest Vital Signs Vital Signs Date Time Temp Pulse Resp B/P (MAP) Pulse Ox O2 Delivery O2 Flow Rate FiO2 12/19/18 21:00 88 17 158/110 (126) 99 12/19/18 18:33 98.2 Room Air Impression: Primary Impression: Generalized weakness Condition: Improved Disposition: HOME OR SELF-CARE Referrals: SHANNA GILMORE MD (PCP) Patient Instructions: Weakness (ED) Additional Instructions: Workup tonight did not show any problems that would account for your weakness and balance problems. We recommend follow-up with your primary care provider. Keep using your walker at home. No changes to medications at this time. CANDACE JOHNSON MD Dec 19, 2018 19:16
[2018-12-19 19:26] LABS: PLATELET COUNT, AUTOMATED 192 K/uL (150-450)
--- NOTE | 2018-12-19 20:50 | RADIOLOGY IMAGING REPORT ---
FACILITY: [facility] PATIENT NAME: Tiago Flores : 1935 MR: [id number] V: [id number] EXAM DATE: ORDERING PHYSICIAN: CANDACE JOHNSON TECHNOLOGIST: Location: [facility] - [place] Patient: Tiago Flores : 1935 Visit/Account:[id number] Date of Sevice: 12/19/2018 CHEST SINGLE AP Indication: Weakness.. Comparison: 05/09/2016. Findings: Cardiomediastinal silhouette and pulmonary vessels within normal limits for the technique and rotatio n. There is no focal infiltrate or lobar consolidation. No pneumothorax or pleural effusion. No nodule. Upper abdomen is unremarkable. No acute bony abnormality. IMPRESSION: 1. No acute cardiopulmonary process. Report Dictated By: Spencer De Anda at 12/19/2018 8:41 PM Report E-Signed By: Spencer De Anda at 12/19/2018 8:42 PM WSN:[id number]
[2018-12-19 21:00] VITALS: BP 158/110
--- NOTE | 2018-12-19 21:03 | RADIOLOGY IMAGING REPORT ---
FACILITY: [facility] - [place] PATIENT NAME: Tiago Flores : 1935 MR: [id number] V: [id number] EXAM DATE: ORDERING PHYSICIAN: CANDACE JOHNSON TECHNOLOGIST: Location: [facility] [place] Patient: Tiago Flores : 1935 Visit/Account:[id number] Date of Sevice: 12/19/2018 EXAMINATION: Head CT without intravenous contrast HISTORY: Weakness. Balance problems. Nausea. Headache. COMPARISON: 05/17/2016. TECHNIQUE: Contiguous axial images were obtained from the skull base to the vertex without intraven ous contrast. Sagittal and coronal reformatted images are also submitted. One of the following dose optimization techniques was utilized in the performance of this exam: Autom ated exposure control; adjustment of the mA and/or kV according to the patient's size; or use of an i terative reconstruction technique. Specific details can be referenced in the facility's radiology C T exam operational policy. FINDINGS: Brain and intracranial structures: Mild generalized cerebral atrophy with concordant sulcal and vent ricular prominence. Moderate patchy and confluent hypoattenuation in the cerebral white matter. Sma ll chronic calcifications in the right cerebellar hemisphere and in the left globus pallidus. No midline shift, acute hemorrhage, acute infarct, or mass. Vessels: Extensive calcification of the carotid siphons. Mild calcification of the distal vertebral arteries. Calvarium / scalp: Negative. Skull base / visualized face: Negative. Visualized sinuses / orbits: Previous endoscopic sinus surgery. Mild patchy mucosal thickening in t he ethmoid air cells. IMPRESSION: No CT evidence of acute intracranial pathology. Moderate chronic small vessel ischemic changes in the cerebral white matter. Report Dictated By: Adan Coreas MD at 12/19/2018 8:45 PM Report E-Signed By: Adan Coreas MD at 12/19/2018 8:55 PM WSN:[id number]
--- NOTE | 2018-12-20 10:14 | EKG ---
FACILITY: [facility] PATIENT NAME: MARY LOU LUIS : [id number] MR: [id number] V: [id number] EXAM DATE: ORDERING PHYSICIAN: CANDACE JOHNSON TECHNOLOGIST: JENELLE Macdonald Reason : WEAKNESS, NAUSEA Blood Pressure : / mmHG Vent. Rate : 083 BPM Atrial Rate : 326 BPM P-R Int : 000 ms QRS Dur : 104 ms QT Int : 364 ms P-R-T Axes : 000 074 044 degrees QTc Int : 427 ms Atrial fibrillation Abnormal ECG When compared with ECG of 17-MAY-2016 14:31, ST no longer depressed in Anterior leads T wave inversion no longer evident in Anterior leads Confirmed by AALIYAH SAUCEDA ([id number]) on 12/20/2018 1:55:52 PM Referred By: Confirmed By:AALIYAH SAUCEDA
== END 2018-12-19 21:29 | disposition home or self-care (01) ==
LOC: ER 18:25
DX: R53.1 Weakness (principal)
CPT/HCPCS: 70450; 71045; 81001; 82040; 82247; 82310; 82374; 82435; 82565; 82947; 83735; 84075; 84132; 84155; 84295; 84450; 84460; 84484; 84520; 85025; 93005; 99284